=== PATIENT | male | born 1965 | race Caucasian/White ===

== ENCOUNTER 2019-08-15 15:26 | Emergency (ER) | payer BC ==
[~2019-08-15] VITALS: Ht 185.4 cm; Wt 127.0 kg
[2019-08-15 15:46] VITALS: BP 123/59
[2019-08-15 16:06] VITALS: BP 123/59
--- NOTE | 2019-08-15 16:29 | ER.PDOC ---
General Chief Complaint: Cough/Congestion Stated Complaint: BAD COUGH,FEVER Time seen by MD: 16:00 Source: patient Exam Limitations: no limitations History of Present Illness Initial Comments Patient complains of increased SOB cough with purulent production chills and sweats and achy all over. States he smokes about 2 packs cigarettes a day and does us CPAP at night. Timing/Duration: yesterday Severity: moderate Associated Symptoms: fever/chills, sweating, cough, mild SOB Worsen By: deep breathing Constitutional: fever, malaise, weakness EENTM: nose congestion Respiratory: cough, SOB with exertion Cardiovascular: no symptoms reported Gastrointestinal: no symptoms reported Genitourinary: no symptoms reported Musculoskeletal: no symptoms reported Skin: no symptoms reported Psychiatric/Neurological: no symptoms reported Endocrine: no symptoms reported Hematologic/Lymphatic: no symptoms reported Past Medical History Medical History: cancer, hypertension, thyroid disease Social History Alcohol Use: rarely Drug Use: none Physical Exam General Appearance: alert, mild distress Eye: eyes nml inspection, lids & conjunct. nml, PERRL, no nystagmus Ear: ear nml Nose: mucosal edema, purlent nasal draingage Throat: airway nml, pharyngeal erythema, hoarse voice Neck: lymphadenopathy Respiratory: decreased air movement Abdomen: non-tender, no organomegaly CVS: reg rate & rhythm, heart sounds nml Skin: color nml, no rash, warm/dry Extremities: non-tender, nml ROM NEURO/PSYCH: oriented x 3 Results/Orders Results/Orders Orders - EMILY BROCK RECEPTION SPECIALIST Strep Screen (08/15/19 16:15) Influenza A&B (08/15/19 16:15) Dexamethasone Sodium Phosphate (Decadron (08/15/19 16:43) Penicillin G Benzathine (Bicillin L-A) (08/15/19 16:43) Vital Signs Date Time Temp Pulse Resp B/P (MAP) Pulse Ox O2 Delivery O2 Flow Rate FiO2 08/15/19 16:06 100.1 108 22 123/59 (80) 93 08/15/19 16:06 100.1 108 22 08/15/19 15:46 100.1 108 22 93 Laboratory Tests Test 08/15/19 16:13 Influenza Type A Antigen NEGATIVE (NEG) Influenza B Immunofluorescence NEGATIVE (NEG) Group A Streptococcus Screen POSITIVE (NEGATIVE) Departure Time of Disposition: 16:41 Disposition: 01 HOME, SELF-CARE Impression: Primary Impression: Strep pharyngitis Condition: Stable Patient Instructions: Bronchitis, [id number] Additional Instructions: Continue to alternate Tylenol and Motrin for fever and pain Follow up with your Primary Care Provider in the next 1-2 days If symptoms become worse return to the ER Duration or Time Spent with Pa: 20 min EMILY BROCK NP Aug 15, 2019 16:29
[2019-08-15] MEDS ORDERED: DECADRON IM STA (16:43)
[2019-08-15] MEDS ORDERED: BICILLIN L-A IM STA (16:43)
[2019-08-15] MEDS ORDERED: DECADRON ONE (16:59)
[2019-08-15] MEDS ORDERED: BICILLIN L-A IM ONE (17:00)
[2019-08-15 17:07] VITALS: BP 124/60
== END 2019-08-15 17:10 | disposition home or self-care (01) ==
LOC: ER 15:26
DX: J02.0 Streptococcal pharyngitis (principal); I10 Essential (primary) hypertension; F17.210 Nicotine dependence, cigarettes, uncomplicated
CPT/HCPCS: 87804 ×2; 87880; 96372; 99284; J0561; J1100